=== PATIENT | female | born 1965 | race Caucasian/White ===

== ENCOUNTER 2018-06-26 05:15 | Emergency (ER) | payer MEDICAID ==
[~2018-06-26] VITALS: Ht 162.6 cm; Wt 76.7 kg
[2018-06-26] MEDS ORDERED: METOCLOPRAMIDE 5 MG/ML, 2ML IVPush ONE (06:00)
[2018-06-26] MEDS ORDERED: LABETALOL 5MG/ML, 20ML IVPush ONE (06:00)
[2018-06-26] MEDS ORDERED: DIPHENHYDRAMINE 50 MG/ML, 1ML IV ONE (06:00)
[2018-06-26] MEDS ORDERED: METOCLOPRAMIDE 5 MG/ML, 2ML ONE (06:13)
[2018-06-26] MEDS ORDERED: DIPHENHYDRAMINE 50 MG/ML, 1ML ONE ×2 (06:13→07:07)
--- NOTE | 2018-06-26 06:20 | NUR ---
PT HERE FOR HEADACHE THAT STARTED YESTERDAY. PT HAS US PIV PLACED. WENT TO MEDICATE PT. PT IS REFUSING BENADRYL. LABETALOL REQUESTED FROM LAB. SPOKE WITH MD ABOUT PTS REQUEST. MD AT BEDSIDE.
--- NOTE | 2018-06-26 06:22 | NUR ---
CT delay,need pain meds .
[2018-06-26 06:30] LABS: BASOPHILS # (AUTO) 0.04 x10^3/uL (0-0.1); BASOPHILS % (AUTO) 1 % (0-1); EOSINOPHILS # (AUTO) 0.06 x10^3/uL (0-0.4); EOSINOPHILS % (AUTO) 1 % (1-7); LYMPHOCYTES # (AUTO) 2.34 x10^3/uL (1-3.4); LYMPHOCYTES % (AUTO) 27 % (22-44); MD NO; MEAN CORPUSCULAR HEMOGLOBIN 32.3 pg (27.0-34.8); MEAN CORPUSCULAR HGB CONC 34.4 g/dL (32.4-35.8); MEAN CORPUSCULAR VOLUME 93.7 fL (80-100); MEAN PLATELET VOLUME 8.3 fL (7.4-10.4); MONOCYTES # (AUTO) 0.58 x10^3/uL (0.2-0.8); MONOCYTES % (AUTO) 7 % (2-9); NEUTROPHILS # (AUTO) 5.75 x10^3/uL (1.8-6.8); NEUTROPHILS % (AUTO) 66 % (42-75); PLATELET COUNT 290 x10^3/uL (130-400); RED BLOOD COUNT 5.14 x10^6/uL (3.82-5.3); RED CELL DISTRIBUTION WIDTH 14.5 % (9.6-15.2)
[2018-06-26 06:32] LABS: ALBUMIN 3.9 g/dL (3.4-5.0); ANION GAP 6 mmol/L (5-15); CALCIUM 9.4 mg/dL (8.5-10.1); CHLORIDE 106 mmol/L (98-107)
[2018-06-26 06:36] LABS: ALANINE AMINOTRANSFERASE 35 U/L (12-78); ALKALINE PHOSPHATASE 64 U/L (45-117); BILIRUBIN,TOTAL 0.7 mg/dL (0.2-1.0); CREATININE 0.94 mg/dL (0.55-1.02); TOTAL PROTEIN 7.5 g/dL (6.4-8.2)
[2018-06-26 06:38] LABS: INTERNATIONAL NORMALIZED RATIO 0.94 (0.93-1.1); PROTHROMBIN TIME 9.9 Seconds (9.6-11.5)
--- NOTE | 2018-06-26 06:46 | NUR ---
PT MEDICATED WITH REGLAN AND LABETALOL. PT COMPLAINING THAT SHE IS NOT GETTING ANY PAIN MEDICATION. RN INFORMED PT THAT SHE WAS GETTING MEDS FOR HER NAUSEA BP AND THAT PT REFUSED THE BENADRYL WHICH WOULD HELP HER HEADACHE IF IT WAS A MIGRAINE. PT EDUCATED BY RN AND MD WHY TORADOL COULD NOT BE GIVEN UNTIL CT WAS RESULTED. PT RESIGNED TO RECIEVING MEDICATION THAT HAS BEEN ORDERED AND WILL WAIT FOR CT RESULTS. SPOUSE AT BEDSIDE. CALL LIGHT IN REACH
--- NOTE | 2018-06-26 07:06 | NUR ---
REPORT TO REYMUNDO RAMOS
[2018-06-26] MEDS ORDERED: KETOROLAC 30 MG/1 ML ONE (07:16)
--- NOTE | 2018-06-26 07:22 | NUR ---
RECEIVED REPORT AND ASSUMED PT. CARE. PT. IS RESTING WITH THE HOB ELEVATED GREATER THAN 30 DEGREES. PT. HAS THE CP MONITOR IN PLACE. DISCUSSED PT.'S VITALS WITH MD. PT. WAS MEDICATED FOR PATTEN PAIN ORDERED. SIDERAILS REMAIN UP X 2, WITH THE CALL LIGHT IN PLACE. PT. IS RESTING WITHOUT CONCERNS.
[2018-06-26] MEDS ORDERED: MORPHINE SULFATE 4 MG/ML, 1ML IVPush PRN (07:30)
[2018-06-26] MEDS ORDERED: KETOROLAC 30 MG/1 ML IVPush ONE (07:30)
[2018-06-26] MEDS ORDERED: MORPHINE SULFATE 4 MG/ML, 1ML ONE (07:32)
--- NOTE | 2018-06-26 07:42 | NUR ---
PT. WAS MEDICATED FOR PAIN AND TAKEN TO MRI.
--- NOTE | 2018-06-26 08:49 | NUR ---
PT. RETURNS FROM MRI.
[2018-06-26] MEDS ORDERED: LABETALOL 5 MG/ML SYRINGE IVPush ONE (09:00)
--- NOTE | 2018-06-26 09:01 | NUR ---
DISCUSSED VITALS WITH DR. GUNN. PT. WAS MEDICATED ORDERED.
--- NOTE | 2018-06-26 09:13 | NUR ---
PT.'S BLOOD PRESSURE WAS CHECKED PRIOR TO LABETALOL BEING GIVEN. PT.'S BLOOD PRESSURE IS DOWN. MEDS HELD PER DR. GUNN'S ORDER.
--- NOTE | 2018-06-26 09:54 | NUR ---
DR. GUNN DISCUSSED AN LP WITH THE PT. PT. IS STATING SHE MAY LEAVE AMA. PT. STATES SHE WANTS TO THINK ABOUT IT AT THIS TIME.
[2018-06-26] MEDS ORDERED: GADOBUTROL 7.5 MMOL/7.5 ML PFS ONE (10:00)
--- NOTE | 2018-06-26 10:46 | NUR ---
PT. IS STILL DECIDING IF SHE WANTS A LUMBAR PUNCTURE OR NOT.
--- NOTE | 2018-06-26 10:50 | NUR ---
PT. IS SLEEPING AFTER PAIN MEDS. PT. STATES SHE DOESN'T KNOW IF SHE CAN STAY AWAKE FOR THE PROCEDURE. PT. WANTS TO LEAVE AMA AT THIS TIME.
--- NOTE | 2018-06-26 11:18 | NUR ---
PT. WAS GIVEN AMA INSTUCTIONS WITH UNDERSTANDING VERBALIZED ALONG WITH WILLIGNESS TO COMPLY. PT.'S IV WAS DCD',CATH TIP INTACT. PRESSURE HELD WITH HEMOSTASIS ACHIEVED. PT. WAS INSTRUCTED NOT TO DRIVE BECAUSE SHE IS UNDER THE INFLUENCE. PT. VERBALIZED UNDERSTANDING. PT. WAS AMBULATORY WITH A STEADY GAIT TO DISCHARGE.
[2018-06-26 11:20] VITALS: BP 137/68
== END 2018-06-26 11:22 | disposition home or self-care (01) ==
LOC: ED 10:29
DX: G44.52 New daily persistent headache (NDPH) (principal); I72.8 Aneurysm of other specified arteries; F17.210 Nicotine dependence, cigarettes, uncomplicated; I10 Essential (primary) hypertension
CPT/HCPCS: 36415; 70450; 70546; 70553; 80053; 85025; 85610; 85730; 93005; 96374; 96375; 99284; A9585; J1200; J1885; J2765